=== PATIENT | female | born 1980 ===

== ENCOUNTER 2017-01-27 08:06 | Day surgery (SDC) | payer SELFPAY ==
[2017-01-23 09:44] VITALS: BMI 29.7
--- NOTE | 2017-01-27 08:45 | CP.SDSHP ---
Same Day Surgery H & P - History Pre-Op Diagnosis: excision of back cyst - Allergies Allergies: Allergies No Known Allergies Allergy (Verified 01/23/17 09:44) - Physical Exam General Appearance: NAD Mental Status: Alert & Oriented x3 Neuro: WNL Heart: WNL Lungs: WNL GI: WNL - {Optional Preform as Required} Breast: WNL Abdomen: WNL Integument: Other (3cm diameter mid back cyst. TTP) - Impression Pt. Evaluated Today:Candidate for Anesthesia & Procedure: Yes - Date & Time Date: 01/27/17 Time: 08:46 Short Stay Discharge - Short Stay Discharge Admitting Diagnosis/Reason for Visit: D17.9 Disposition: HOME/ ROUTINE Referrals: Neo Vernon MD [Primary Care Provider] - Follow-up: follow up with Dr. Mathew in 1 week Ok to take shower friday. Leave steristrips. Instructions: Dermal Cyst Excision (DC)
[2017-01-27] MEDS ORDERED: Bupivacaine 0.5% Inj(30mL) ONE (10:51)
[2017-01-27] MEDS ORDERED: Lidocaine 1% Inj (20ml) ONE (10:51)
[2017-01-27] MEDS ORDERED: Lidocaine 1% w Epi 1:100,000 Inj ONE (10:52)
[2017-01-27] MEDS ORDERED: Lidocaine/Epi 1% 1:100000 20 ML IJ ONE ×2 (11:14)
--- NOTE | 2017-01-27 11:50 | PCM.SURG1 ---
Surgeon's Initial Post Op Note - Surgeon's Notes Surgeon: Dr. Mathew Reports Developer: Val Merchant PGY2, Jacinda Type of Anesthesia: Local Pre-Operative Diagnosis: Back sebaceous cyst Operative Findings: Back sebaceous cyst [id number] Post-Operative Diagnosis: Same Operation Performed: Excision of Back sebaceous cyst Specimen/Specimens Removed: Sebaceous cyst [id number] Estimated Blood Loss: EBL {In ML}: 5 Blood Products Given: N/A Drains Used: No Drains Post-Op Condition: Good Date of Surgery/Procedure: 01/27/17 Time of Surgery/Procedure: 11:51
[2017-01-27] MEDS ORDERED: Oxycodone/Acetaminophen 5/325 mg Tab PO PRN (11:53)
[2017-01-27 12:38] VITALS: BP 104/70; PULSE 80; RESP 18; TEMP 98.7; O2SAT 98
--- NOTE | 2017-01-29 01:31 | OP ---
PROCEDURE DATE: 01/27/2017 SURGEON: Dr. Mathew. ADDITIONAL ASSISTANTS: Dr. Val Merchant and Dr. Monaco. ANESTHESIA: Local 1% lidocaine with epinephrine. PREOPERATIVE DIAGNOSIS: Sebaceous cyst upper back. POSTOPERATIVE DIAGNOSIS: Sebaceous cyst upper back. PROCEDURE: Excision of cyst upper back. DESCRIPTION OF OPERATION: With the patient in the prone position, the upper back was prepped and draped in the usual sterile manner. There was a 3-cm mass noted in the midline just below the neck with a central punctum, this area was prepped and draped in the usual sterile manner. An elliptical incision was planned and the skin surrounding the punctum was infiltrated with 1% lidocaine with epinephrine. An elliptical incision was made encompassing the central punctum and deepened down through the full-thickness of skin. As the cyst wall was encountered, the skin was dissected sharply away from the cyst using a scalpel and the cyst was then dissected away from the underlying subcutaneous tissue also using sharp dissection and removed intact. The cyst did not appear acutely infected or inflamed. The operative site was examined for hemostasis and closure was performed in two layers with subcutaneous closure of interrupted sutures of 3-0 Vicryl and subcuticular closure of 4-0 Monocryl and Steri-Strips. Dry sterile dressing was applied. The patient tolerated the procedure well and transferred to same-day surgery in stable condition. Estimated blood loss for the procedure was 5 ml. Tami Mathew MD [facility]
== END 2017-01-27 12:37 | disposition home or self-care (01) ==
LOC: H.OPSURG 08:06
PROVIDERS: ATTEND Specialist
DX: L72.3 Sebaceous cyst (principal)